=== PATIENT | female | born 1975 | race Caucasian/White ===

== ENCOUNTER 2023-08-19 14:20 | Emergency (ER) | payer OTHER, SELFPAY ==
[2023-08-19] VITALS (7 sets, daily range): BP systolic 113–151; BP diastolic 80–114
[2023-08-19 14:45] LABS: % Basophils 0.6 % (0-2); % Immature Granulocytes 0.2 % (0-0.5); % Lymphocytes 31.7 % (20.5-51.1); % Monocytes 9.5 % (1.7-9.3); Absolute Lymphocytes 1.6 10^3/uL (1.2-3.4); Absolute Monocytes 0.5 10^3/uL (0.1-0.6); Hematocrit 38.5 % (37.0-47.0); Hemoglobin 13.5 g/dL (12.0-16.0); Mean Corp Hgb Conc. 35.1 g/dL (33.0-37.0); Mean Corpuscular Hgb 29.8 pg (27.0-31.0); Mean Platelet Volume 9.5 fL (7.4-10.4); Nucleated Red Blood Cells % 0 %; Platelet Count 245 10^3/uL (130-400); Red Blood Cell Count 4.53 10^6/uL (4.20-5.40); Red Cell Dist. Width 12.6 % (11.5-14.5); White Blood Cell Count 5.2 10^3/uL (4.8-10.8)
[2023-08-19 14:54] LABS: ALT (SGPT) 19 U/L (0-35); AST (SGOT) 29 U/L (14-36); Albumin 4.4 g/dl (3.5-5.0); Alkaline Phosphatase 91 U/L (38-126); Blood Urea Nitrogen 18 mg/dl (7-17); Carbon Dioxide 27 mmol/L (22-30); Chloride 101 mmol/L (98-107); Glucose 108 mg/dl (70-99); Potassium 3.9 mmol/L (3.5-5.1); Sodium 136 mmol/L (135-145); Total Bilirubin 0.5 mg/dl (0.2-1.3); Total Protein 7.5 g/dl (6.3-8.2); eGFR > 60.00
[2023-08-19 15:06] LABS: Troponin I < 0.012 ng/ml
--- NOTE | 2023-08-19 16:01 | ED.GENMED ---
History of Present Illness
General
Chief Complaint: Chest Pain
Source: patient
Exam Limitations: none
Time Seen by Provider: 08/19/23 16:00
Travel History
Have you had any contact with someone who has COVID-19?: No
Do you have any symptoms of coronavirus? Fever > 100 degrees, chills, cough, shortness of breath, sore throat, loss of taste or smell, muscle aches, or headache?: No
History of Present Illness
History of Present Illness:
Patient started around 930 with vague left-sided chest pain with radiation to the left scapula. Has been relatively constant since then. No pleuritic pain no shortness of breath no nausea or diaphoresis. Also complaining of some paresthesias more
today in the left foot but has been an intermittent problem for months. History of intermittent headaches with migraine. History of Raynaud's.
Past History
Past History
ED Past Medical History: Other (Raynaud's disease)
ED Past Surgical History: and Other ([place] teeth)
Social History
Tobacco: Non-smoker
Personal:
Living: with family
Family History
Family History: Other (Melanoma); Negative Early CAD, CAD or Sudden
Phy Exam
Physical Exam
Physical Exam:
GENERAL: Alert and oriented in no apparent distress
EYE: Orbits normal.
NECK: Supple
CARDIAC: Regular rate and rhythm without any obvious murmurs.
LUNGS: Clear breath sounds,normal
ABDOMEN: Soft, without focal tenderness or distention
NEUROLOGICAL: Alert and oriented , speech normal. Switchboard Wirer normal. Interosseous intact. Flexion extension normal. Light touch intact.
SKIN: Warm and dry, no rash or lesion, no discoloration, skin intact.
MUSCULOSKELETAL: No edema,no deformity.Good color
PSYCH: Normal and appropriate interaction.
Scores
Heart Score for Chest Pain Patients
STEMI patient?: No
History: Slightly or Non-Suspicious
ECG: Normal
Age: </= 45 years
Risk Factors: 1 or 2 Risk Factors
Troponin: </= Normal Limit
Heart Score for Chest Pain Patients: 1
Heart Score Risk: 2.5% MACE over next 6 weeks
Course
Orders/Labs/Results
Orders:
Orders
08/19/23 14:21
Electrocardiogram (*1) Urgent
Reason for Study: Chest Pain
EKG- Treatment ONCE
08/19/23 14:31
Complete Blood Count/With Diff Urgent
Comprehensive Metabolic Panel Urgent
HCG, Serum Qualitative Screen Urgent
Troponin I Urgent
08/19/23 16:10
CT Chest Angio W/wo Iv Contras Urgent
Comment:
Reason For Exam: Chest pain radiation to the back
CT Head W/o Iv Contrast Urgent
Comment:
Reason For Exam: Headaches/paresthesias
08/19/23 16:11
Add On- LAB Urgent
Tests Added?: qual bhcg
Abnormal Lab Results
08/19/23
14:31
Monocytes % 9.5 H %
(1.7-9.3)
BUN 18 H mg/dl
(7-17)
Glucose 108 H mg/dl
(70-99)
08/19/23 14:31
08/19/23 14:31
Vital Signs
Initial and Last Documented VS:
Initial Vital Signs
Temp Pulse Resp BP Pulse Ox
97.9 F 77 18 141/88 100
08/19/23 14:22 08/19/23 14:22 08/19/23 14:22 08/19/23 14:22 08/19/23 14:22
Last Documented Vital Signs
Temp Pulse Resp BP Pulse Ox
97.9 F 66 15 113/80 100
08/19/23 14:22 08/19/23 19:59 08/19/23 19:00 08/19/23 19:59 08/19/23 18:45
MDM/Problems Addressed
Differential Diagnosis Includes:
Patient with ongoing chest pain to the back. Has been 5+ hours. Troponin and EKG normal. No risk factors. Exercises regularly without issues. Feel patient does not warrant repeat cardiac testing given the prolonged nature lack of risk factors.
As for the chest pain to the back a CT scan of the chest will be done. Paresthesias sound unrelated. We will CT her head with her migraine history
*Pulse Oximetry
Patient hypoxic: no
*EKG
Interpreted by ED Provider?: Yes
Interpretation: normal
Comparison EKG: no changes
Heart Rate: 67
Rate: normal
Rhythm: sinus
[place]: normal axis
Interval: normal interval
QRS Pattern: normal QRS
Ischemia: non-specific ST changes
*Critical Care Note
Total Time (30-74mins, 75-104mins- exclusive of procedures): Not Applicable
Update Note
Update Note:
Patient is remained stable and nontoxic. Prolonged symptoms with negative cardiac testing and minimal cardiac risk factors. No dissection. Highly doubt pulmonary emboli. Incidental liver lesion noted to patient with copy of report to follow-up.
ED Attending Note
-
Portions of this chart may have been created with voice recognition software.� Occasional wrong word or��sound alike� substitutions may have occurred due to the inherent limitations of voice recognition software.
Discharge Plan
Departure
Patient Disposition: Home (Routine Discharge)
Date of Disposition: 08/19/23
Time of Disposition: 19:36
Patient with high blood pressure during this ER visit?: Yes
Discharge Problem:
Anterior chest pain, Paresthesias, Incidental liver lesion
Instructions: Chest Pain (DC), Paresthesia (DC), BLOOD PRESSURE
Prescriptions:
No Action
metaxalone [Skelaxin] 800 MG tablet
800 mg PO TID Qty: 20 0RF
Referrals:
Guillermo Osorio DO [Family Provider] - Follow up in 2-3 days
Activity Restrictions/Additional Instructions:
Follow-up your CAT scan report with your primary physician
Interventions
Interventions:
*Risk Screen - Suicide Last Done: 08/19/23 16:24
*General Assessment Last Done: 08/19/23 16:24
*Neglect/Abuse Screening Last Done: 08/19/23 16:24
*ED COVID-19 Vaccine History Last Done: 08/19/23 16:24
*Nursing Disposition Last Done: 08/19/23 19:59
ED- Cardiac Assessment Last Done: 08/19/23 16:52
Discharge Date and Time
Discharge Date/Time: 08/19/23 20:00
Print Language: SPANISH
[2023-08-19 17:23] LABS: HCG, Serum Qualitative Screen Negative
== END 2023-08-19 20:00 | disposition home or self-care (01) ==
LOC: EMR 14:20
PROVIDERS: Emergency Medicine; EMERGENCY PHYSICIAN Emergency Medicine; FAMILY PHYSICIAN Family Medicine
DX: R07.89 Other chest pain (principal); R20.2 Paresthesia of skin; K76.9 Liver disease, unspecified; R03.0 Elevated blood-pressure reading, without diagnosis of hypertension; I73.00 Raynaud's syndrome without gangrene; G43.909 Migraine, unspecified, not intractable, without status migrainosus
CPT/HCPCS: 99285; 70450; 71275; 80053; 84484; 84703; 85025; 93005; Q9967

== ENCOUNTER 2024-10-22 08:59 | Emergency (ER) | payer OTHER, SELFPAY ==
[2024-10-22 09:07] VITALS: BP 126/88
[2024-10-22 10:08] VITALS: BMI 23.0
[2024-10-22 10:10] VITALS: BP 115/49
--- NOTE | 2024-10-22 10:10 | ED.GENMED ---
History of Present Illness
General
Chief Complaint: Chest Pain
Source: patient
Exam Limitations: none
Time Seen by Provider: 10/22/24 09:49
History of Present Illness
History of Present Illness:
49-year-old female presents with intermittent chest discomfort radiating to the arm with associated tingling to the left hand and right hand as well as left foot. This has been ongoing for 2 to 3 days. Discomfort waxes and wanes on its own. It is
not made worse with exertion. She exercises regularly. In fact she has been walking over the past couple days for an extended walk over 4 miles with a weighted vest without any difficulty. No recent travel or surgery. No leg swelling or calf
pain. No exogenous hormones. The pain is not pleuritic. No other complaints
Past History
Past History
ED Past Medical History: Other (Raynaud's disease)
ED Past Surgical History: and Other ([place] teeth)
Social History
Tobacco: Non-smoker
Personal:
Living: with family
Family History
Family History: Other (Melanoma); Negative Early CAD, CAD or Sudden
Phy Exam
Physical Exam
Physical Exam:
General: Well-appearing female no acute respiratory distress
HEENT: Normocephalic atraumatic heart: Regular rate and rhythm
Lungs: Clear no wheeze
Abdomen is soft nontender nondistended
Extremities: No cyanosis or edema
Skin is warm no rash
Scores
Heart Score for Chest Pain Patients
STEMI patient?: No
History: Slightly or Non-Suspicious
ECG: Normal
Age: >45 - <65 years
Risk Factors: 1 or 2 Risk Factors
Troponin: </= Normal Limit
Heart Score for Chest Pain Patients: 2
Heart Score Risk: 2.5% MACE over next 6 weeks
Course
Orders/Labs/Results
Orders:
Orders
10/22/24 09:01
EKG [Electrocardiogram (*1)] Urgent
Reason for Study: Chest Pain
EKG- Treatment ONCE
10/22/24 10:02
Add On- LAB Urgent
Tests Added?: lipase
10/22/24 10:03
Add On- LAB Urgent
Tests Added?: serum hcg
CR Chest - 2 Views Urgent
Comment:
Reason For Exam: chest pain
10/22/24 10:08
Complete Blood Count/With Diff Urgent
Comprehensive Metabolic Panel Urgent
HCG, Serum Qualitative Screen Urgent
Comment: ADD
Lipase Urgent
Comment: ADD
Troponin I Urgent
Abnormal Lab Results
10/22/24
10:08
WBC 3.7 L 10^3/uL
(4.8-10.8)
Carbon Dioxide 31 H mmol/L
(22-30)
BUN 20 H mg/dl
(7-17)
10/22/24 10:08
10/22/24 10:08
Vital Signs
Initial and Last Documented VS:
Initial Vital Signs
Temp Pulse Resp BP Pulse Ox
97.8 F 67 16 126/88 98
10/22/24 09:07 10/22/24 09:07 10/22/24 09:07 10/22/24 09:07 10/22/24 09:07
Last Documented Vital Signs
Temp Pulse Resp BP Pulse Ox
98.5 F 59 11 115/49 97
10/22/24 10:10 10/22/24 10:15 10/22/24 10:15 10/22/24 10:10 10/22/24 10:15
MDM/Problems Addressed
Differential Diagnosis Includes:
Chest pain. Consider ACS unlikely to be PE given waxing waning symptoms and lack of risk factors. Do not suspect dissection. She has stable vital signs. EKG shows sinus bradycardia but expected in an active person. Will order troponin and chest
x-ray.
*Critical Care Note
Total Time (30-74mins, 75-104mins- exclusive of procedures): Not Applicable
Update Note
Update Note:
Workup here normal. Cardiac enzyme undetectable chest x-ray clear. Atypical chest discomfort. Hives and differential still could include GERD anxiety. Given the family history of cardiovascular disease will refer to photo intern as
ED Attending Note
-
Portions of this chart may have been created with voice recognition software.� Occasional wrong word or��sound alike� substitutions may have occurred due to the inherent limitations of voice recognition software.
Discharge Plan
Departure
Patient Disposition: Home (Routine Discharge)
Date of Disposition: 10/22/24
Time of Disposition: 12:00
Patient with high blood pressure during this ER visit?: No
Discharge Problem:
Chest pain
Instructions: Chest Pain CBC Follow Up
Prescriptions:
No Action
No Current Medications
0
Referrals:
Guillermo Osorio DO [Family Provider, Family Practice]
Activity Restrictions/Additional Instructions:
Return here for worsening symptoms otherwise follow-up with your doctor and/or cardiology
Interventions
Interventions:
*Risk Screen - Suicide Last Done: 10/22/24 09:07
*General Assessment Last Done: 10/22/24 10:10
*Neglect/Abuse Screening Last Done: 10/22/24 09:07
*ED- Fall Risk Assessment Last Done: 10/22/24 10:10
*ED COVID-19 Vaccine History Last Done: 10/22/24 10:10
ED- Cardiac Assessment Last Done: 10/22/24 10:10
Discharge Date and Time
Print Language: NAMIBIAN
[2024-10-22 10:21] LABS: % Basophils 0.5 % (0-2); % Immature Granulocytes 0.3 % (0-0.5); % Lymphocytes 39.6 % (20.5-51.1); % Monocytes 8.8 % (1.7-9.3); % Neutrophils 50.8 % (42.2-75.2); Absolute Lymphocytes 1.5 10^3/uL (1.2-3.4); Absolute Monocytes 0.3 10^3/uL (0.1-0.6); Absolute Neutrophils 1.9 10^3/uL (1.4-6.5); Hematocrit 40.7 % (37.0-47.0); Hemoglobin 14.6 g/dL (12.0-16.0); Mean Corp Hgb Conc. 35.9 g/dL (33.0-37.0); Mean Corpuscular Volume 83.6 fL (81.0-99.0); Mean Platelet Volume 9.5 fL (7.4-10.4); Nucleated Red Blood Cells % 0 %; Platelet Count 229 10^3/uL (130-400); Red Blood Cell Count 4.87 10^6/uL (4.20-5.40); Red Cell Dist. Width 12.1 % (11.5-14.5); White Blood Cell Count 3.7 10^3/uL (4.8-10.8)
[2024-10-22 10:32] LABS: ALT (SGPT) 14 U/L (0-35); AST (SGOT) 23 U/L (14-36); Albumin 4.5 g/dl (3.5-5.0); Alkaline Phosphatase 87 U/L (38-126); Blood Urea Nitrogen 20 mg/dl (7-17); Calcium 9.7 mg/dl (8.4-10.2); Carbon Dioxide 31 mmol/L (22-30); Chloride 107 mmol/L (98-107); Estimated Creatinine Clearance 54 ml/min; Glucose 84 mg/dl (70-99); Potassium 4.6 mmol/L (3.5-5.1); Sodium 141 mmol/L (135-145); Total Bilirubin 0.6 mg/dl (0.2-1.3); Total Protein 7.2 g/dl (6.3-8.2); eGFR > 60.00
[2024-10-22 10:37] LABS: HCG, Serum Qualitative Screen Negative
[2024-10-22 10:43] LABS: Troponin I < 0.012 ng/ml
[2024-10-22 10:56] LABS: Lipase 122 U/L (23-300)
== END 2024-10-22 12:19 | disposition home or self-care (01) ==
LOC: EMR 08:59
PROVIDERS: EMERGENCY PHYSICIAN Emergency Medicine; FAMILY PHYSICIAN Family Medicine
DX: R07.89 Other chest pain (principal); I73.00 Raynaud's syndrome without gangrene
CPT/HCPCS: 99283; 71046; 80053; 83690; 84484; 84703; 85025; 93005